=== PATIENT | male | born 1945 | race Caucasian/White ===

== ENCOUNTER 2022-10-12 10:18 | Day surgery (SDC) | payer MEDICARE ==
[~2022-10-12] VITALS: Ht 172.7 cm; Wt 75.8 kg
[2022-10-12] VITALS (11 sets, daily range): BP systolic 113–148; BP diastolic 67–96
[2022-10-12] MEDS ORDERED: normal saline 1,000 ML IV SCH (10:50)
[2022-10-12] MEDS ORDERED: diphenhydrAMINE 25mg capsule PO PRN (10:50)
[2022-10-12] MEDS ORDERED: LORazepam 0.5 MG tablet PO PRN (10:50)
[2022-10-12] MEDS ORDERED: nitroGLYCERIN 0.4mg SUBLingual tab SL PRN (10:50)
[2022-10-12] MEDS ORDERED: AMIT-1 PO (11:27)
[2022-10-12] MEDS ORDERED: PRAZ2CAP2 PO (11:27)
[2022-10-12] MEDS ORDERED: LISI20TA28 PO (11:27)
[2022-10-12] MEDS ORDERED: iohexol 350MG/ML 100ml bottle IV ONE (12:59)
[2022-10-12] MEDS ORDERED: LIDOcaine 1% 30ml preserv. free vial ONE (12:59)
[2022-10-12] MEDS ORDERED: midazolam 1 mg/ML 2ml injection ONE (12:59)
[2022-10-12] MEDS ORDERED: fentaNYL/PF 50MCG/1 ML 2ML syringe ONE (12:59)
[2022-10-12] MEDS ORDERED: iohexol 350 MG/ML 50ML vial IV ONE (12:59)
[2022-10-12] MEDS ORDERED: proCHLORperazine 10 MG/2 ml inj IV PRN (14:50)
[2022-10-12] MEDS ORDERED: HYDROcodone/acetaminophen 5mg/325mg tablet PO PRN (14:50)
[2022-10-12] MEDS ORDERED: ondansetron/PF 4mg/2ml inj IV PRN (14:50)
[2022-10-12] MEDS ORDERED: HYDROcodone/acetaminophen 10/325mg tab PO PRN (14:50)
[2022-10-12] MEDS ORDERED: normal saline 1000ml 1,000 ML IV SCH (14:50)
[2022-10-12] MEDS ORDERED: OXAZEpam 15mg capsule PO PRN (14:50)
== END 2022-10-12 19:43 | disposition home or self-care (01) ==
LOC: SSTAY O 10:18
PROVIDERS: ATTEND Internal Medicine Cardiovascular Disease
DX: R94.39 Abnormal result of other cardiovascular function study (principal); I25.118 Atherosclerotic heart disease of native coronary artery with other forms of angina pectoris; F43.10 Post-traumatic stress disorder, unspecified; I10 Essential (primary) hypertension; E78.5 Hyperlipidemia, unspecified; I27.20 Pulmonary hypertension, unspecified; J43.9 Emphysema, unspecified; Z72.89 Other problems related to lifestyle; Z98.890 Other specified postprocedural states; Z79.899 Other long term (current) drug therapy; Z98.52 Vasectomy status
CPT/HCPCS: 93005; 93458; 99152; C1760; C1769; J1644; J2250; J3010; J3490; J7030; Q0163; Q9967; 99153; A6258